=== PATIENT | male | born 1965 | race Caucasian/White ===

== ENCOUNTER 2020-10-25 13:24 | Inpatient (IN) | payer SELFPAY ==
[2020-10-25] MEDS ORDERED: Iopamidol-370 76% 500 ML 1 ML ONE (13:37)
[2020-10-25 14:18] LABS: Hemoglobin 15.3 g/dL (14.0-18.0); Mean Corpuscular HGB CONC 34.9 g/dL (32.0-36.0); Mean Corpuscular Hemoglobin 31.2 pg (27.0-31.0); Mean Corpuscular Volume 89.3 fL (78.0-98.0); Mean Platelet Volume 7.5 fL (7.4-10.4); Platelet Count 215 thou/uL (130-400); RBC Distribution Width 12.4 % (11.5-14.5); Red Blood Cell (RBC) Count 4.91 mill/uL (4.70-6.10); White Blood Cell (WBC) Count 8.6 thou/uL (4.8-10.8)
[2020-10-25] MEDS ORDERED: Albuterol Sulfate 2.5 mg/0.5 ml Neb ONE (14:29)
[2020-10-25] MEDS ORDERED: Dexamethasone 4 mg/ml Vial ONE (14:29)
[2020-10-25 14:30] LABS: Band 8 % (5-11); Lymphocytes 1 % (21-51); MDiff Complete? YES; Monocytes 9 % (0-10); Neutrophil 82 % (42-75); Platelet Morphology Comment Appears Adequate; RBC Morphology Normal
[2020-10-25] MEDS ORDERED: Albuterol 200 PUFF (6.7GM INHALER) ONE (14:31)
[2020-10-25 14:57] LABS: ALT (SGPT) 43 U/L (8-55); AST (SGOT) 39 U/L (5-34); Albumin 3.5 g/dL (3.5-5.0); Alkaline Phosphatase 99 U/L (40-110); Anion Gap 24 mmol/L (10-20); BUN (Urea Nitrogen) 23 mg/dL (8.4-25.7); Bilirubin, Total 0.7 mg/dL (0.2-1.2); Calc. Creatinine Clearance 0 mL/min (70-130); Calcium 9.2 mg/dL (7.8-10.44); Carbon Dioxide 19 mmol/L (22-29); Chloride 93 mmol/L (98-107); Globulin 3.2 g/dL (2.4-3.5); Glucose 459 mg/dL (70-105); Potassium 4.9 mmol/L (3.5-5.1); Protein, Total 6.7 g/dL (6.0-8.3); Sodium 131 mmol/L (136-145)
[2020-10-25 16:32] LABS: Actual Bicarbonate (HCO3a) 17.6 mEq/L (22-28); Analyzer IN Cardio ER; Base Excess (BEa) -6.5 mEq/L (-2.0 to +3.0); CO2 Tension 31.8 mmHg (35.0-45.0); Carboxyhemoglobin (COHb) 0.5 gm% (0.0-3.0); Hemoglobin (Hb) 15.6 g/dL (14.0-18.0); pH, Arterial 7.36 (7.35-7.45)
[2020-10-25 16:34] LABS: O2 Tension (PaO2), arterial 56.6 mmHg (80.0-100.0); Puncture Site LRA
[2020-10-25 17:42] LABS: Lactic Acid 1.9 mmol/L (0.5-2.2)
[2020-10-25] MEDS ORDERED: HYDROcodone/Acetaminophen 5/325 mg Tablet PO PRN (17:56)
[2020-10-25] MEDS ORDERED: Senokot S 8.6-50 MG TAB PO PRN (17:56)
[2020-10-25] MEDS ORDERED: Acetaminophen 325 MG TAB PO PRN (17:56)
[2020-10-25] MEDS ORDERED: Ondansetron ODT 4 MG TAB PO PRN (17:56)
[2020-10-25] MEDS ORDERED: Bisacodyl 5 MG TAB PO PRN (17:56)
[2020-10-25] MEDS ORDERED: HYDROcodone/Acetaminophen 7.5/325 mg Tablet PO PRN (17:56)
[2020-10-25] MEDS ORDERED: Guaifenesin DM 100-10/5 ML UDCUP PO PRN (17:56)
[2020-10-25] MEDS ORDERED: Enoxaparin Sodium 40 MG/0.4 ML SYRINGE SC SCH (18:00)
[2020-10-25] MEDS ORDERED: Dextrose 50% Abboject 50 ML SYRINGE SLOW IVP PRN (18:09)
[2020-10-25] MEDS ORDERED: Dextrose 5% in Water 1,000 ML IV PRN (18:09)
[2020-10-25] MEDS ORDERED: Pharmacy to Dose REMDESIVIR IVPB PRN (18:19)
[2020-10-25] MEDS ORDERED: Insulin Regular 300 UNITS/3 ML VIAL ONE (18:24)
[2020-10-25] MEDS ORDERED: cefTRIAXone\\ROCEPHIN 2 GM VIAL ONE (20:35)
[2020-10-25] MEDS ORDERED: Enoxaparin Sodium 40 MG/0.4 ML SYRINGE ONE (20:35)
[2020-10-25] MEDS: cefTRIAXone\\ROCEPHIN 2 GM in Sodium Chloride 0.9% 100 ML IVPB SCH (20:42)
[2020-10-25] MEDS ORDERED: Azithromycin 500 MG VIAL ONE (21:31)
[2020-10-25] MEDS ORDERED: Famotidine 20 MG TAB ONE (21:31)
[2020-10-25] MEDS: Famotidine 20 MG TAB PO SCH (21:38)
[2020-10-25] MEDS: Azithromycin 500 MG in Sodium Chloride 0.9% 250 ML 250 ML IVPB SCH (21:38)
[2020-10-25] MEDS: HumaLOG 300 UNITS/3 ML VIAL SC PRN (23:19)
[2020-10-25] MEDS ORDERED: HumaLOG 300 UNITS/3 ML VIAL ONE (23:22)
[2020-10-26 05:46] LABS: #Lymphocytes 0.6 thou/uL (1.20-3.40); #Monocytes 1.1 thou/uL (0.11-0.59); #Neutrophils 10.1 thou/uL (1.40-6.50); %Basophils 0.1 % (0.0-1.0); %Eosinophils 0.3 % (0.0-10.0); %Lymphocytes 5.3 % (21.0-51.0); %Monocytes 9.5 % (0.0-10.0); %Neutrophils 84.8 % (42.0-75.0); Mean Corpuscular HGB CONC 34.7 g/dL (32.0-36.0); Mean Corpuscular Volume 89.6 fL (78.0-98.0); Mean Platelet Volume 7.5 fL (7.4-10.4); Platelet Count 223 thou/uL (130-400); RBC Distribution Width 12.5 % (11.5-14.5); Red Blood Cell (RBC) Count 5.17 mill/uL (4.70-6.10); White Blood Cell (WBC) Count 11.9 thou/uL (4.8-10.8)
[2020-10-26 06:05] LABS: Anion Gap 24 mmol/L (10-20); BUN (Urea Nitrogen) 23 mg/dL (8.4-25.7); Calc. Creatinine Clearance 0 mL/min (70-130); Calcium 9.7 mg/dL (7.8-10.44); Carbon Dioxide 20 mmol/L (22-29); Chloride 96 mmol/L (98-107); Glucose 375 mg/dL (70-105); Potassium 5.6 mmol/L (3.5-5.1); Sodium 134 mmol/L (136-145)
[2020-10-26] MEDS ORDERED: HumaLOG 300 UNITS/3 ML VIAL ONE (08:13)
[2020-10-26] MEDS ORDERED: Dexamethasone 10 MG/ML VIAL ONE (08:13)
[2020-10-26] MEDS ORDERED: Enoxaparin Sodium 40 MG/0.4 ML SYRINGE ONE (08:13)
[2020-10-26] MEDS ORDERED: Famotidine 20 MG TAB ONE (08:13)
[2020-10-26] MEDS: HumaLOG 300 UNITS/3 ML VIAL SC PRN ×3 (08:17→20:21)
[2020-10-26] MEDS: Dexamethasone 4 mg/ml Vial SLOW IVP SCH (08:25)
[2020-10-26] MEDS: Famotidine 20 MG TAB PO SCH ×2 (08:25→20:19)
[2020-10-26] MEDS ORDERED: Enoxaparin Sodium 40 MG/0.4 ML SYRINGE SC SCH (09:00)
[2020-10-26] MEDS ORDERED: Lorazepam 2 MG/ML VIAL SLOW IVP PRN (10:24)
[2020-10-26] MEDS ORDERED: Lorazepam 0.5 MG TAB PO PRN (10:24)
[2020-10-26] MEDS: Lantus 1000 UNITS/10 ML VIAL SC SCH (12:41)
[2020-10-26] MEDS: Ascorbic Acid 500 mg Chewable Tablet PO SCH (13:53)
[2020-10-26] MEDS: Zinc Sulfate 220 MG CAP PO SCH (13:53)
[2020-10-26] MEDS: Cholecalciferol (Vitamin D3) 400 UNITS TAB PO SCH (13:53)
[2020-10-26] MEDS: cefTRIAXone\\ROCEPHIN 2 GM in Sodium Chloride 0.9% 100 ML IVPB SCH (18:20)
[2020-10-26] MEDS: Enoxaparin Sodium 40 MG/0.4 ML SYRINGE SC SCH (20:19)
[2020-10-26] MEDS: Azithromycin 500 MG in Sodium Chloride 0.9% 250 ML 250 ML IVPB SCH (21:17)
[2020-10-27 05:58] LABS: #Lymphocytes 0.7 thou/uL (1.20-3.40); #Monocytes 1.1 thou/uL (0.11-0.59); #Neutrophils 9.1 thou/uL (1.40-6.50); %Eosinophils 0.2 % (0.0-10.0); %Lymphocytes 6.6 % (21.0-51.0); %Monocytes 10.3 % (0.0-10.0); %Neutrophils 82.9 % (42.0-75.0); Hemoglobin 14.7 g/dL (14.0-18.0); Mean Corpuscular Hemoglobin 31.2 pg (27.0-31.0); Mean Corpuscular Volume 89.2 fL (78.0-98.0); Mean Platelet Volume 7.3 fL (7.4-10.4); Platelet Count 258 thou/uL (130-400); RBC Distribution Width 12.4 % (11.5-14.5); Red Blood Cell (RBC) Count 4.72 mill/uL (4.70-6.10)
[2020-10-27] MEDS: HumaLOG 300 UNITS/3 ML VIAL SC PRN ×5 (06:25→21:40)
[2020-10-27 06:56] LABS: Anion Gap 21 mmol/L (10-20); BUN (Urea Nitrogen) 26 mg/dL (8.4-25.7); Calc. Creatinine Clearance 112 mL/min (70-130); Calcium 8.9 mg/dL (7.8-10.44); Carbon Dioxide 20 mmol/L (22-29); Chloride 94 mmol/L (98-107); Glucose 333 mg/dL (70-105); Potassium 4.3 mmol/L (3.5-5.1); Sodium 131 mmol/L (136-145)
[2020-10-27 07:04] LABS: SARS-CoV-2 NAA Rapid Test DETECTED (NotDetected)
[2020-10-27] MEDS: Ascorbic Acid 500 mg Chewable Tablet PO SCH (08:33)
[2020-10-27] MEDS: Cholecalciferol (Vitamin D3) 400 UNITS TAB PO SCH (08:33)
[2020-10-27] MEDS: Zinc Sulfate 220 MG CAP PO SCH (08:35)
[2020-10-27] MEDS: Enoxaparin Sodium 40 MG/0.4 ML SYRINGE SC SCH ×2 (08:35→21:41)
[2020-10-27] MEDS: Famotidine 20 MG TAB PO SCH ×2 (08:35→22:11)
[2020-10-27] MEDS ORDERED: Dexamethasone 4 mg/ml Vial SLOW IVP SCH (09:00)
[2020-10-27] MEDS: Dexamethasone 4 mg/ml Vial SLOW IVP SCH (09:14)
[2020-10-27] MEDS: Lantus 1000 UNITS/10 ML VIAL SC SCH (09:15)
[2020-10-27] MEDS ORDERED: Melatonin 3 MG TAB PO PRN (13:06)
[2020-10-27] MEDS: cefTRIAXone\\ROCEPHIN 2 GM in Sodium Chloride 0.9% 100 ML IVPB SCH (21:38)
[2020-10-27] MEDS: Azithromycin 500 MG in Sodium Chloride 0.9% 250 ML 250 ML IVPB SCH (21:42)
[2020-10-28 05:19] LABS: #Lymphocytes 0.6 thou/uL (1.20-3.40); #Monocytes 0.9 thou/uL (0.11-0.59); #Neutrophils 8.7 thou/uL (1.40-6.50); %Eosinophils 0.1 % (0.0-10.0); %Lymphocytes 5.6 % (21.0-51.0); %Monocytes 8.7 % (0.0-10.0); %Neutrophils 85.5 % (42.0-75.0); Hemoglobin 15.1 g/dL (14.0-18.0); Mean Corpuscular HGB CONC 35.3 g/dL (32.0-36.0); Mean Corpuscular Hemoglobin 31.3 pg (27.0-31.0); Mean Corpuscular Volume 88.6 fL (78.0-98.0); Platelet Count 266 thou/uL (130-400); RBC Distribution Width 12.2 % (11.5-14.5); Red Blood Cell (RBC) Count 4.81 mill/uL (4.70-6.10); White Blood Cell (WBC) Count 10.2 thou/uL (4.8-10.8)
[2020-10-28 05:21] LABS: Hemoglobin A1c 10.7 % (4.0-6.0)
[2020-10-28 05:42] LABS: Anion Gap 12 mmol/L (10-20); BUN (Urea Nitrogen) 22 mg/dL (8.4-25.7); Calc. Creatinine Clearance 136 mL/min (70-130); Calcium 9.2 mg/dL (7.8-10.44); Carbon Dioxide 30 mmol/L (22-29); Chloride 96 mmol/L (98-107); Glucose 281 mg/dL (70-105); Potassium 4.1 mmol/L (3.5-5.1); Sodium 134 mmol/L (136-145)
[2020-10-28] MEDS: HumaLOG 300 UNITS/3 ML VIAL SC PRN ×4 (06:24→22:51)
[2020-10-28] MEDS: Enoxaparin Sodium 40 MG/0.4 ML SYRINGE SC SCH ×2 (08:38→21:13)
[2020-10-28] MEDS: Lantus 1000 UNITS/10 ML VIAL SC SCH (08:38)
[2020-10-28] MEDS: Cholecalciferol (Vitamin D3) 400 UNITS TAB PO SCH (08:38)
[2020-10-28] MEDS: Ascorbic Acid 500 mg Chewable Tablet PO SCH (08:39)
[2020-10-28] MEDS: Famotidine 20 MG TAB PO SCH ×2 (08:40→21:13)
[2020-10-28] MEDS: Zinc Sulfate 220 MG CAP PO SCH (08:40)
[2020-10-28] MEDS: Dexamethasone 4 mg/ml Vial SLOW IVP SCH (08:41)
[2020-10-28] MEDS: Azithromycin 500 MG in Sodium Chloride 0.9% 250 ML 250 ML IVPB SCH (21:12)
[2020-10-28] MEDS: cefTRIAXone\\ROCEPHIN 2 GM in Sodium Chloride 0.9% 100 ML IVPB SCH (22:52)
[2020-10-29 05:34] LABS: Hemoglobin 15.4 g/dL (14.0-18.0); Mean Corpuscular HGB CONC 36.2 g/dL (32.0-36.0); Mean Corpuscular Hemoglobin 31.9 pg (27.0-31.0); Mean Corpuscular Volume 88.2 fL (78.0-98.0); Mean Platelet Volume 7.3 fL (7.4-10.4); Platelet Count 295 thou/uL (130-400); RBC Distribution Width 12.1 % (11.5-14.5); Red Blood Cell (RBC) Count 4.82 mill/uL (4.70-6.10); White Blood Cell (WBC) Count 11.2 thou/uL (4.8-10.8)
[2020-10-29 05:38] LABS: Anion Gap 15 mmol/L (10-20); BUN (Urea Nitrogen) 19 mg/dL (8.4-25.7); Calc. Creatinine Clearance 169 mL/min (70-130); Calcium 8.7 mg/dL (7.8-10.44); Carbon Dioxide 26 mmol/L (22-29); Chloride 96 mmol/L (98-107); Glucose 250 mg/dL (70-105); Potassium 4.1 mmol/L (3.5-5.1); Sodium 133 mmol/L (136-145)
[2020-10-29 06:49] LABS: Band 15 % (5-11); Lymphocytes 2 % (21-51); MDiff Complete? YES; Metamyelocyte 1 % (0-0); Monocytes 5 % (0-10); Myelocyte 2 % (0-0); Neutrophil 74 % (42-75); Reactive Lymphocytes 1 % (0-10)
[2020-10-29] MEDS ORDERED: Lantus 1000 UNITS/10 ML VIAL SC SCH ×2 (09:00→21:00)
[2020-10-29] MEDS: Ascorbic Acid 500 mg Chewable Tablet PO SCH (09:34)
[2020-10-29] MEDS: Cholecalciferol (Vitamin D3) 400 UNITS TAB PO SCH (09:34)
[2020-10-29] MEDS: Famotidine 20 MG TAB PO SCH ×2 (09:34→21:07)
[2020-10-29] MEDS: Zinc Sulfate 220 MG CAP PO SCH (09:35)
[2020-10-29] MEDS: Enoxaparin Sodium 40 MG/0.4 ML SYRINGE SC SCH ×2 (09:35→18:22)
[2020-10-29] MEDS: HumaLOG 300 UNITS/3 ML VIAL SC PRN ×3 (12:32→21:09)
[2020-10-29] MEDS ORDERED: Albuterol 200 PUFF (6.7GM INHALER) INH PRN (16:25)
[2020-10-29] MEDS: Albuterol 200 PUFF (6.7GM INHALER) INH SCH ×2 (17:52→23:51)
[2020-10-29] MEDS: Dexamethasone 4 mg/ml Vial SLOW IVP SCH (17:55)
[2020-10-29] MEDS ORDERED: Azithromycin 250 MG TAB PO SCH (21:00)
[2020-10-29] MEDS ORDERED: Enoxaparin Sodium 40 MG/0.4 ML SYRINGE SC SCH (21:00)
[2020-10-29] MEDS: Aspirin 81 mg Enteric Coated Tablet PO SCH (21:07)
[2020-10-29] MEDS: guaiFENesin ER 600 MG TAB PO SCH (21:07)
[2020-10-29] MEDS: cefTRIAXone\\ROCEPHIN 2 GM in Sodium Chloride 0.9% 100 ML IVPB SCH (21:08)
[2020-10-30] MEDS: Albuterol 200 PUFF (6.7GM INHALER) INH SCH ×6 (03:46→22:43)
[2020-10-30 05:16] LABS: #Lymphocytes 0.6 thou/uL (1.20-3.40); #Monocytes 0.5 thou/uL (0.11-0.59); #Neutrophils 10.9 thou/uL (1.40-6.50); %Eosinophils 0.2 % (0.0-10.0); %Lymphocytes 4.7 % (21.0-51.0); %Monocytes 4.4 % (0.0-10.0); %Neutrophils 90.6 % (42.0-75.0); Hemoglobin 15.4 g/dL (14.0-18.0); Mean Corpuscular Hemoglobin 31.9 pg (27.0-31.0); Mean Corpuscular Volume 88.7 fL (78.0-98.0); Mean Platelet Volume 7.3 fL (7.4-10.4); Platelet Count 259 thou/uL (130-400); RBC Distribution Width 12.2 % (11.5-14.5); Red Blood Cell (RBC) Count 4.84 mill/uL (4.70-6.10)
[2020-10-30 05:43] LABS: ALT (SGPT) 22 U/L (8-55); AST (SGOT) 19 U/L (5-34); Albumin 2.8 g/dL (3.5-5.0); Alkaline Phosphatase 115 U/L (40-110); Anion Gap 13 mmol/L (10-20); BUN (Urea Nitrogen) 16 mg/dL (8.4-25.7); Bilirubin, Total 0.8 mg/dL (0.2-1.2); CRP (Inflammatory) 9.28 mg/dL (= or < 0.5); Calc. Creatinine Clearance 169 mL/min (70-130); Carbon Dioxide 30 mmol/L (22-29); Chloride 94 mmol/L (98-107); Globulin 3.2 g/dL (2.4-3.5); Glucose 250 mg/dL (70-105); Magnesium 1.9 mg/dL (1.6-2.6); Potassium 4.3 mmol/L (3.5-5.1); Sodium 133 mmol/L (136-145)
[2020-10-30] MEDS: HumaLOG 300 UNITS/3 ML VIAL SC PRN ×4 (06:43→20:46)
[2020-10-30] MEDS: Famotidine 20 MG TAB PO SCH ×2 (08:59→20:45)
[2020-10-30] MEDS: Zinc Sulfate 220 MG CAP PO SCH (08:59)
[2020-10-30] MEDS: Ascorbic Acid 500 mg Chewable Tablet PO SCH (08:59)
[2020-10-30] MEDS: guaiFENesin ER 600 MG TAB PO SCH ×2 (09:00→20:45)
[2020-10-30] MEDS: Cholecalciferol (Vitamin D3) 400 UNITS TAB PO SCH (09:00)
[2020-10-30] MEDS ORDERED: Enoxaparin Sodium 40 MG/0.4 ML SYRINGE SC SCH (09:00)
[2020-10-30] MEDS: Multivit, Therapeutic 1 TAB PO SCH (09:00)
[2020-10-30] MEDS: Lantus 1000 UNITS/10 ML VIAL SC SCH ×2 (09:03→20:45)
[2020-10-30] MEDS: Dexamethasone 10 MG/ML VIAL SLOW IVP SCH (10:50)
[2020-10-30] MEDS ORDERED: BARICITINIB 2 MG TAB PO SCH (15:30)
[2020-10-30] MEDS ORDERED: Magnesium 2 GM/50 ML 2 GM in Premix Bag 1 BAG IVPB SCH (18:00)
[2020-10-30] MEDS: Aspirin 81 mg Enteric Coated Tablet PO SCH (20:45)
[2020-10-30] MEDS: Enoxaparin Sodium 40 MG/0.4 ML SYRINGE SC SCH (20:45)
[2020-10-31] MEDS: Albuterol 200 PUFF (6.7GM INHALER) INH SCH ×6 (02:38→22:01)
[2020-10-31 05:22] LABS: #Lymphocytes 0.7 thou/uL (1.20-3.40); #Monocytes 0.8 thou/uL (0.11-0.59); #Neutrophils 11.8 thou/uL (1.40-6.50); %Basophils 0.1 % (0.0-1.0); %Eosinophils 0.3 % (0.0-10.0); %Lymphocytes 5.4 % (21.0-51.0); %Monocytes 5.7 % (0.0-10.0); %Neutrophils 88.6 % (42.0-75.0); Mean Corpuscular HGB CONC 35.2 g/dL (32.0-36.0); Mean Corpuscular Hemoglobin 31.6 pg (27.0-31.0); Mean Corpuscular Volume 89.8 fL (78.0-98.0); Mean Platelet Volume 7.4 fL (7.4-10.4); Platelet Count 267 thou/uL (130-400); RBC Distribution Width 12.3 % (11.5-14.5); Red Blood Cell (RBC) Count 4.74 mill/uL (4.70-6.10); White Blood Cell (WBC) Count 13.3 thou/uL (4.8-10.8)
[2020-10-31 05:43] LABS: ALT (SGPT) 21 U/L (8-55); AST (SGOT) 17 U/L (5-34); Albumin 2.9 g/dL (3.5-5.0); Alkaline Phosphatase 116 U/L (40-110); Anion Gap 12 mmol/L (10-20); BUN (Urea Nitrogen) 19 mg/dL (8.4-25.7); Bilirubin, Total 0.8 mg/dL (0.2-1.2); Calc. Creatinine Clearance 162 mL/min (70-130); Calcium 9.3 mg/dL (7.8-10.44); Carbon Dioxide 33 mmol/L (22-29); Chloride 93 mmol/L (98-107); Globulin 3.1 g/dL (2.4-3.5); Glucose 232 mg/dL (70-105); Potassium 4.1 mmol/L (3.5-5.1); Sodium 134 mmol/L (136-145)
[2020-10-31] MEDS: HumaLOG 300 UNITS/3 ML VIAL SC PRN ×4 (06:25→22:02)
[2020-10-31] MEDS: Ascorbic Acid 500 mg Chewable Tablet PO SCH (09:34)
[2020-10-31] MEDS: guaiFENesin ER 600 MG TAB PO SCH ×2 (09:34→22:00)
[2020-10-31] MEDS: Cholecalciferol (Vitamin D3) 400 UNITS TAB PO SCH (09:34)
[2020-10-31] MEDS: Zinc Sulfate 220 MG CAP PO SCH (09:34)
[2020-10-31] MEDS: Famotidine 20 MG TAB PO SCH ×2 (09:35→22:00)
[2020-10-31] MEDS: BARICITINIB 2 MG TAB PO SCH (09:35)
[2020-10-31] MEDS: Lantus 1000 UNITS/10 ML VIAL SC SCH ×2 (09:36→22:00)
[2020-10-31] MEDS: Dexamethasone 10 MG/ML VIAL SLOW IVP SCH (09:36)
[2020-10-31] MEDS: Enoxaparin Sodium 40 MG/0.4 ML SYRINGE SC SCH ×2 (09:39→21:59)
[2020-10-31] MEDS: Multivit, Therapeutic 1 TAB PO SCH (09:50)
[2020-10-31] MEDS ORDERED: Sodium Chloride 0.65% Nasal 44 ML BOT EA NARE PRN (13:04)
[2020-10-31] MEDS: Sodium Chloride 0.65% Nasal 44 ML BOT EA NARE SCH ×2 (19:34→22:00)
[2020-10-31] MEDS: Aspirin 81 mg Enteric Coated Tablet PO SCH (21:59)
[2020-11-01] MEDS: Albuterol 200 PUFF (6.7GM INHALER) INH SCH ×6 (02:30→19:55)
[2020-11-01] MEDS: HumaLOG 300 UNITS/3 ML VIAL SC PRN ×5 (02:40→19:58)
[2020-11-01 05:34] LABS: #Lymphocytes 0.9 thou/uL (1.20-3.40); #Monocytes 0.9 thou/uL (0.11-0.59); #Neutrophils 14.7 thou/uL (1.40-6.50); %Eosinophils 0.3 % (0.0-10.0); %Lymphocytes 5.3 % (21.0-51.0); %Monocytes 5.5 % (0.0-10.0); %Neutrophils 88.9 % (42.0-75.0); Mean Corpuscular HGB CONC 35.3 g/dL (32.0-36.0); Mean Corpuscular Hemoglobin 31.8 pg (27.0-31.0); Mean Corpuscular Volume 90.2 fL (78.0-98.0); Mean Platelet Volume 7.4 fL (7.4-10.4); Platelet Count 284 thou/uL (130-400); RBC Distribution Width 12.5 % (11.5-14.5); Red Blood Cell (RBC) Count 4.71 mill/uL (4.70-6.10); White Blood Cell (WBC) Count 16.5 thou/uL (4.8-10.8)
[2020-11-01 05:59] LABS: ALT (SGPT) 21 U/L (8-55); AST (SGOT) 19 U/L (5-34); Albumin 2.8 g/dL (3.5-5.0); Alkaline Phosphatase 118 U/L (40-110); Anion Gap 10 mmol/L (10-20); BUN (Urea Nitrogen) 21 mg/dL (8.4-25.7); Bilirubin, Total 0.6 mg/dL (0.2-1.2); CRP (Inflammatory) 4.28 mg/dL (= or < 0.5); Calc. Creatinine Clearance 176 mL/min (70-130); Carbon Dioxide 35 mmol/L (22-29); Chloride 96 mmol/L (98-107); Globulin 3.1 g/dL (2.4-3.5); Glucose 173 mg/dL (70-105); Magnesium 1.8 mg/dL (1.6-2.6); Potassium 4.1 mmol/L (3.5-5.1); Protein, Total 5.9 g/dL (6.0-8.3); Sodium 137 mmol/L (136-145)
[2020-11-01] MEDS: Zinc Sulfate 220 MG CAP PO SCH (09:40)
[2020-11-01] MEDS: guaiFENesin ER 600 MG TAB PO SCH ×2 (09:40→19:56)
[2020-11-01] MEDS: Cholecalciferol (Vitamin D3) 400 UNITS TAB PO SCH (09:41)
[2020-11-01] MEDS: Enoxaparin Sodium 40 MG/0.4 ML SYRINGE SC SCH ×2 (09:41→19:56)
[2020-11-01] MEDS: Multivit, Therapeutic 1 TAB PO SCH (09:41)
[2020-11-01] MEDS: Ascorbic Acid 500 mg Chewable Tablet PO SCH (09:41)
[2020-11-01] MEDS: Famotidine 20 MG TAB PO SCH ×2 (09:41→19:56)
[2020-11-01] MEDS: Dexamethasone 10 MG/ML VIAL SLOW IVP SCH (09:42)
[2020-11-01] MEDS: BARICITINIB 2 MG TAB PO SCH (09:43)
[2020-11-01] MEDS: Sodium Chloride 0.65% Nasal 44 ML BOT EA NARE SCH ×4 (09:52→19:57)
[2020-11-01] MEDS: Lantus 1000 UNITS/10 ML VIAL SC SCH (10:04)
[2020-11-01] MEDS ORDERED: Magnesium 2 GM/50 ML 2 GM in Premix Bag 1 BAG IVPB SCH (14:30)
[2020-11-01] MEDS: Aspirin 81 mg Enteric Coated Tablet PO SCH (19:56)
[2020-11-01] MEDS ORDERED: Lantus 1000 UNITS/10 ML VIAL SC SCH (21:00)
[2020-11-02 05:45] LABS: #Eosinphils 0.1 thou/uL (0.0-0.7); #Neutrophils 14.7 thou/uL (1.40-6.50); %Basophils 0.1 % (0.0-1.0); %Eosinophils 0.4 % (0.0-10.0); %Neutrophils 87.5 % (42.0-75.0); Hemoglobin 14.9 g/dL (14.0-18.0); Mean Corpuscular HGB CONC 34.2 g/dL (32.0-36.0); Mean Corpuscular Hemoglobin 31.1 pg (27.0-31.0); Mean Corpuscular Volume 90.7 fL (78.0-98.0); Mean Platelet Volume 7.6 fL (7.4-10.4); Platelet Count 280 thou/uL (130-400); RBC Distribution Width 12.6 % (11.5-14.5); White Blood Cell (WBC) Count 16.8 thou/uL (4.8-10.8)
[2020-11-02 06:08] LABS: Anion Gap 10 mmol/L (10-20); BUN (Urea Nitrogen) 22 mg/dL (8.4-25.7); CRP (Inflammatory) 4.28 mg/dL (= or < 0.5); Calc. Creatinine Clearance 170 mL/min (70-130); Calcium 9.1 mg/dL (7.8-10.44); Carbon Dioxide 34 mmol/L (22-29); Chloride 97 mmol/L (98-107); Glucose 140 mg/dL (70-105); Potassium 3.8 mmol/L (3.5-5.1); Sodium 137 mmol/L (136-145)
[2020-11-02] MEDS: Albuterol 200 PUFF (6.7GM INHALER) INH SCH ×4 (07:07→20:54)
[2020-11-02] MEDS: Lantus 1000 UNITS/10 ML VIAL SC SCH (08:11)
[2020-11-02] MEDS: Ascorbic Acid 500 mg Chewable Tablet PO SCH (08:13)
[2020-11-02] MEDS: Famotidine 20 MG TAB PO SCH ×2 (08:14→21:00)
[2020-11-02] MEDS: Zinc Sulfate 220 MG CAP PO SCH (08:14)
[2020-11-02] MEDS: Cholecalciferol (Vitamin D3) 400 UNITS TAB PO SCH (08:14)
[2020-11-02] MEDS: guaiFENesin ER 600 MG TAB PO SCH ×2 (08:14→21:00)
[2020-11-02] MEDS: Multivit, Therapeutic 1 TAB PO SCH (08:14)
[2020-11-02] MEDS: Enoxaparin Sodium 40 MG/0.4 ML SYRINGE SC SCH ×2 (08:15→20:59)
[2020-11-02] MEDS: Sodium Chloride 0.65% Nasal 44 ML BOT EA NARE SCH ×4 (08:15→21:01)
[2020-11-02] MEDS: Dexamethasone 10 MG/ML VIAL SLOW IVP SCH (08:16)
[2020-11-02] MEDS: BARICITINIB 2 MG TAB PO SCH (08:16)
[2020-11-02] MEDS ORDERED: glipiZIDE 5 MG TAB PO SCH (09:00)
[2020-11-02] MEDS: HumaLOG 300 UNITS/3 ML VIAL SC PRN ×3 (12:51→21:01)
[2020-11-02] MEDS: Aspirin 81 mg Enteric Coated Tablet PO SCH (20:59)
[2020-11-02] MEDS ORDERED: Lantus 1000 UNITS/10 ML VIAL SC SCH (21:00)
[2020-11-03 04:50] LABS: #Eosinphils 0.1 thou/uL (0.0-0.7); #Lymphocytes 0.9 thou/uL (1.20-3.40); #Monocytes 1.3 thou/uL (0.11-0.59); #Neutrophils 14.9 thou/uL (1.40-6.50); %Basophils 0.2 % (0.0-1.0); %Eosinophils 0.5 % (0.0-10.0); %Lymphocytes 5.5 % (21.0-51.0); %Monocytes 7.7 % (0.0-10.0); %Neutrophils 86.2 % (42.0-75.0); Hemoglobin 15.5 g/dL (14.0-18.0); Mean Corpuscular HGB CONC 33.1 g/dL (32.0-36.0); Mean Corpuscular Volume 90.5 fL (78.0-98.0); Mean Platelet Volume 7.3 fL (7.4-10.4); Platelet Count 301 thou/uL (130-400); RBC Distribution Width 12.7 % (11.5-14.5); Red Blood Cell (RBC) Count 5.18 mill/uL (4.70-6.10); White Blood Cell (WBC) Count 17.3 thou/uL (4.8-10.8)
[2020-11-03 05:07] LABS: Anion Gap 13 mmol/L (10-20); BUN (Urea Nitrogen) 21 mg/dL (8.4-25.7); CRP (Inflammatory) 4.57 mg/dL (= or < 0.5); Calc. Creatinine Clearance 163 mL/min (70-130); Calcium 9.3 mg/dL (7.8-10.44); Carbon Dioxide 32 mmol/L (22-29); Chloride 97 mmol/L (98-107); Glucose 77 mg/dL (70-105); Magnesium 1.8 mg/dL (1.6-2.6); Potassium 3.6 mmol/L (3.5-5.1); Sodium 138 mmol/L (136-145)
[2020-11-03] MEDS: Albuterol 200 PUFF (6.7GM INHALER) INH SCH ×4 (07:52→20:23)
[2020-11-03] MEDS: Sodium Chloride 0.65% Nasal 44 ML BOT EA NARE SCH ×4 (08:30→20:37)
[2020-11-03] MEDS: Dexamethasone 10 MG/ML VIAL SLOW IVP SCH (08:50)
[2020-11-03] MEDS: guaiFENesin ER 600 MG TAB PO SCH ×2 (08:52→20:26)
[2020-11-03] MEDS: Cholecalciferol (Vitamin D3) 400 UNITS TAB PO SCH (08:53)
[2020-11-03] MEDS: Famotidine 20 MG TAB PO SCH (08:53)
[2020-11-03] MEDS: BARICITINIB 2 MG TAB PO SCH (08:54)
[2020-11-03] MEDS: Zinc Sulfate 220 MG CAP PO SCH (08:54)
[2020-11-03] MEDS: Multivit, Therapeutic 1 TAB PO SCH (08:54)
[2020-11-03] MEDS: Ascorbic Acid 500 mg Chewable Tablet PO SCH (08:54)
[2020-11-03] MEDS: glipiZIDE 5 MG TAB PO SCH (08:55)
[2020-11-03] MEDS: Enoxaparin Sodium 60 MG/0.6 ML SYRINGE SC SCH ×2 (09:09→20:25)
[2020-11-03] MEDS: HumaLOG 300 UNITS/3 ML VIAL SC PRN ×3 (11:32→21:22)
[2020-11-03] MEDS: Lantus 1000 UNITS/10 ML VIAL SC SCH (11:51)
[2020-11-03] MEDS ORDERED: Azithromycin 250 MG TAB PO SCH (14:15)
[2020-11-03] MEDS: cefTRIAXone\\ROCEPHIN 1 GM in Sodium Chloride 0.9% 100 ML IVPB SCH (14:53)
[2020-11-03] MEDS ORDERED: Electrolyte Replacement Protocol 1 EACH FS SCH (17:00)
[2020-11-03] MEDS ORDERED: Magnesium 2 GM/50 ML 2 GM in Premix Bag 1 BAG IVPB SCH (18:45)
[2020-11-03] MEDS: Cholecalciferol 1,000 UNITS (25 MCG) TAB PO SCH (20:24)
[2020-11-03] MEDS: Colchicine 0.6 MG TAB PO SCH (20:25)
[2020-11-03] MEDS: Ivermectin 3 MG TAB PO SCH (20:37)
[2020-11-04 04:39] LABS: #Eosinphils 0.1 thou/uL (0.0-0.7); #Lymphocytes 1.1 thou/uL (1.20-3.40); #Monocytes 1.9 thou/uL (0.11-0.59); #Neutrophils 16.5 thou/uL (1.40-6.50); %Basophils 0.2 % (0.0-1.0); %Eosinophils 0.3 % (0.0-10.0); %Lymphocytes 5.4 % (21.0-51.0); %Monocytes 9.6 % (0.0-10.0); %Neutrophils 84.5 % (42.0-75.0); Hemoglobin 15.9 g/dL (14.0-18.0); Mean Corpuscular HGB CONC 35.8 g/dL (32.0-36.0); Mean Corpuscular Hemoglobin 32.4 pg (27.0-31.0); Mean Corpuscular Volume 90.6 fL (78.0-98.0); Mean Platelet Volume 7.6 fL (7.4-10.4); Platelet Count 305 thou/uL (130-400); RBC Distribution Width 12.7 % (11.5-14.5); Red Blood Cell (RBC) Count 4.89 mill/uL (4.70-6.10); White Blood Cell (WBC) Count 19.5 thou/uL (4.8-10.8)
[2020-11-04 04:58] LABS: Anion Gap 13 mmol/L (10-20); BUN (Urea Nitrogen) 22 mg/dL (8.4-25.7); CRP (Inflammatory) 5.04 mg/dL (= or < 0.5); Calc. Creatinine Clearance 180 mL/min (70-130); Calcium 9.5 mg/dL (7.8-10.44); Carbon Dioxide 31 mmol/L (22-29); Chloride 96 mmol/L (98-107); Glucose 145 mg/dL (70-105); Potassium 4.4 mmol/L (3.5-5.1); Sodium 136 mmol/L (136-145)
[2020-11-04] MEDS: Albuterol 200 PUFF (6.7GM INHALER) INH SCH ×4 (05:52→21:23)
[2020-11-04 06:52] LABS: Troponin I Less than 0.010 ng/mL (< 0.028)
[2020-11-04] MEDS: glipiZIDE 5 MG TAB PO SCH (08:41)
[2020-11-04] MEDS: Ascorbic Acid 500 mg Chewable Tablet PO SCH (08:41)
[2020-11-04] MEDS: Aspirin 81 mg Enteric Coated Tablet PO SCH (08:41)
[2020-11-04] MEDS: Azithromycin 250 MG TAB PO SCH (08:42)
[2020-11-04] MEDS: BARICITINIB 2 MG TAB PO SCH (08:42)
[2020-11-04] MEDS: Colchicine 0.6 MG TAB PO SCH ×2 (08:43→21:24)
[2020-11-04] MEDS: Dexamethasone 10 MG/ML VIAL SLOW IVP SCH (08:44)
[2020-11-04] MEDS: Enoxaparin Sodium 60 MG/0.6 ML SYRINGE SC SCH ×2 (08:45→21:24)
[2020-11-04] MEDS: guaiFENesin ER 600 MG TAB PO SCH ×2 (08:46→21:24)
[2020-11-04] MEDS: Multivit, Therapeutic 1 TAB PO SCH (08:47)
[2020-11-04] MEDS: Sodium Chloride 0.65% Nasal 44 ML BOT EA NARE SCH ×4 (08:48→21:24)
[2020-11-04] MEDS: Zinc Sulfate 220 MG CAP PO SCH (08:48)
[2020-11-04] MEDS: Lantus 1000 UNITS/10 ML VIAL SC SCH (10:15)
[2020-11-04 10:47] LABS: Troponin I Less than 0.010 ng/mL (< 0.028)
[2020-11-04] MEDS: HumaLOG 300 UNITS/3 ML VIAL SC PRN ×3 (13:50→21:31)
[2020-11-04] MEDS: cefTRIAXone\\ROCEPHIN 1 GM in Sodium Chloride 0.9% 100 ML IVPB SCH (15:13)
[2020-11-04] MEDS: Cholecalciferol 1,000 UNITS (25 MCG) TAB PO SCH (21:24)
[2020-11-04] MEDS: Ivermectin 3 MG TAB PO SCH (21:25)
[2020-11-05 05:14] LABS: Anion Gap 13 mmol/L (10-20); BUN (Urea Nitrogen) 23 mg/dL (8.4-25.7); CRP (Inflammatory) 3.56 mg/dL (= or < 0.5); Calc. Creatinine Clearance 180 mL/min (70-130); Calcium 9.3 mg/dL (7.8-10.44); Carbon Dioxide 30 mmol/L (22-29); Chloride 96 mmol/L (98-107); Glucose 148 mg/dL (70-105); Magnesium 1.8 mg/dL (1.6-2.6); Phosphorus 3.1 mg/dL (2.3-4.7); Potassium 4.5 mmol/L (3.5-5.1); Sodium 134 mmol/L (136-145)
[2020-11-05 05:23] LABS: Band 6 % (5-11); Eosinophils 2 % (0-10); Hemoglobin 15.7 g/dL (14.0-18.0); Lymphocytes 4 % (21-51); MDiff Complete? YES; Mean Corpuscular HGB CONC 34.6 g/dL (32.0-36.0); Mean Corpuscular Hemoglobin 31.4 pg (27.0-31.0); Mean Corpuscular Volume 90.8 fL (78.0-98.0); Mean Platelet Volume 7.6 fL (7.4-10.4); Monocytes 10 % (0-10); Neutrophil 78 % (42-75); Platelet Count 361 thou/uL (130-400); Platelet Morphology Comment Appears Adequate; Red Blood Cell (RBC) Count 5.01 mill/uL (4.70-6.10); White Blood Cell (WBC) Count 20.4 thou/uL (4.8-10.8)
[2020-11-05] MEDS ORDERED: Magnesium 2 GM/50 ML 2 GM in Premix Bag 1 BAG IVPB SCH (06:45)
[2020-11-05] MEDS: Albuterol 200 PUFF (6.7GM INHALER) INH SCH ×4 (08:21→18:18)
[2020-11-05] MEDS: Ascorbic Acid 500 mg Chewable Tablet PO SCH (08:22)
[2020-11-05] MEDS: Multivit, Therapeutic 1 TAB PO SCH (08:22)
[2020-11-05] MEDS: Colchicine 0.6 MG TAB PO SCH ×2 (08:22→21:02)
[2020-11-05] MEDS: Zinc Sulfate 220 MG CAP PO SCH (08:22)
[2020-11-05] MEDS: guaiFENesin ER 600 MG TAB PO SCH ×2 (08:23→21:02)
[2020-11-05] MEDS: Aspirin 81 mg Enteric Coated Tablet PO SCH (08:23)
[2020-11-05] MEDS: BARICITINIB 2 MG TAB PO SCH (08:23)
[2020-11-05] MEDS: Azithromycin 250 MG TAB PO SCH (08:23)
[2020-11-05] MEDS: glipiZIDE 5 MG TAB PO SCH (08:23)
[2020-11-05] MEDS: Dexamethasone 10 MG/ML VIAL SLOW IVP SCH (08:24)
[2020-11-05] MEDS: Enoxaparin Sodium 60 MG/0.6 ML SYRINGE SC SCH ×2 (08:25→21:01)
[2020-11-05] MEDS: Lantus 1000 UNITS/10 ML VIAL SC SCH (08:26)
[2020-11-05] MEDS: Sodium Chloride 0.65% Nasal 44 ML BOT EA NARE SCH ×4 (08:28→21:03)
[2020-11-05] MEDS: HumaLOG 300 UNITS/3 ML VIAL SC PRN ×4 (12:29→21:13)
[2020-11-05] MEDS: cefTRIAXone\\ROCEPHIN 1 GM in Sodium Chloride 0.9% 100 ML IVPB SCH (14:16)
[2020-11-05] MEDS: Cholecalciferol 1,000 UNITS (25 MCG) TAB PO SCH (21:02)
[2020-11-05] MEDS: Ivermectin 3 MG TAB PO SCH (22:17)
[2020-11-06 09:10] LABS: #Basophils 0.1 thou/uL (0.0-0.2); #Eosinphils 0.1 thou/uL (0.0-0.7); #Lymphocytes 1.1 thou/uL (1.20-3.40); #Monocytes 1.9 thou/uL (0.11-0.59); #Neutrophils 17.6 thou/uL (1.40-6.50); %Basophils 0.3 % (0.0-1.0); %Eosinophils 0.3 % (0.0-10.0); %Lymphocytes 5.1 % (21.0-51.0); %Monocytes 9.1 % (0.0-10.0); %Neutrophils 85.2 % (42.0-75.0); Hemoglobin 15.8 g/dL (14.0-18.0); Mean Corpuscular HGB CONC 34.4 g/dL (32.0-36.0); Mean Corpuscular Hemoglobin 31.2 pg (27.0-31.0); Mean Corpuscular Volume 90.9 fL (78.0-98.0); Mean Platelet Volume 7.4 fL (7.4-10.4); Platelet Count 394 thou/uL (130-400); RBC Distribution Width 13.1 % (11.5-14.5); Red Blood Cell (RBC) Count 5.06 mill/uL (4.70-6.10); White Blood Cell (WBC) Count 20.7 thou/uL (4.8-10.8)
[2020-11-06 09:30] LABS: ALT (SGPT) 20 U/L (8-55); AST (SGOT) 13 U/L (5-34); Albumin 3.2 g/dL (3.5-5.0); Alkaline Phosphatase 105 U/L (40-110); Anion Gap 14 mmol/L (10-20); BUN (Urea Nitrogen) 23 mg/dL (8.4-25.7); Bilirubin, Total 0.7 mg/dL (0.2-1.2); CRP (Inflammatory) 4.05 mg/dL (= or < 0.5); Calc. Creatinine Clearance 180 mL/min (70-130); Calcium 9.3 mg/dL (7.8-10.44); Carbon Dioxide 28 mmol/L (22-29); Chloride 96 mmol/L (98-107); Globulin 3.1 g/dL (2.4-3.5); Glucose 166 mg/dL (70-105); Potassium 4.2 mmol/L (3.5-5.1); Protein, Total 6.3 g/dL (6.0-8.3); Sodium 134 mmol/L (136-145)
[2020-11-06] MEDS: Enoxaparin Sodium 60 MG/0.6 ML SYRINGE SC SCH ×2 (09:54→20:51)
[2020-11-06] MEDS: Azithromycin 250 MG TAB PO SCH (09:55)
[2020-11-06] MEDS: BARICITINIB 2 MG TAB PO SCH (09:56)
[2020-11-06] MEDS: Ascorbic Acid 500 mg Chewable Tablet PO SCH (09:56)
[2020-11-06] MEDS: glipiZIDE 5 MG TAB PO SCH (09:56)
[2020-11-06] MEDS: Zinc Sulfate 220 MG CAP PO SCH (09:56)
[2020-11-06] MEDS: Aspirin 81 mg Enteric Coated Tablet PO SCH (09:56)
[2020-11-06] MEDS: Multivit, Therapeutic 1 TAB PO SCH (09:56)
[2020-11-06] MEDS: Colchicine 0.6 MG TAB PO SCH ×2 (09:56→20:53)
[2020-11-06] MEDS: guaiFENesin ER 600 MG TAB PO SCH ×2 (09:56→20:54)
[2020-11-06] MEDS: Sodium Chloride 0.65% Nasal 44 ML BOT EA NARE SCH ×3 (09:57→18:15)
[2020-11-06] MEDS: Dexamethasone 10 MG/ML VIAL SLOW IVP SCH (09:57)
[2020-11-06] MEDS: Lantus 1000 UNITS/10 ML VIAL SC SCH (09:57)
[2020-11-06] MEDS: Albuterol 200 PUFF (6.7GM INHALER) INH SCH ×4 (09:57→20:53)
[2020-11-06] MEDS: cefTRIAXone\\ROCEPHIN 1 GM in Sodium Chloride 0.9% 100 ML IVPB SCH (14:29)
[2020-11-06] MEDS: HumaLOG 300 UNITS/3 ML VIAL SC PRN ×3 (14:33→20:57)
[2020-11-06] MEDS: Cholecalciferol 1,000 UNITS (25 MCG) TAB PO SCH (20:52)
[2020-11-06] MEDS: Metoprolol Tartrate 25 MG TAB PO SCH (20:53)
[2020-11-07 04:56] LABS: #Basophils 0.1 thou/uL (0.0-0.2); #Eosinphils 0.1 thou/uL (0.0-0.7); #Lymphocytes 1.6 thou/uL (1.20-3.40); #Monocytes 1.8 thou/uL (0.11-0.59); #Neutrophils 13.4 thou/uL (1.40-6.50); %Basophils 0.4 % (0.0-1.0); %Eosinophils 0.6 % (0.0-10.0); %Lymphocytes 9.5 % (21.0-51.0); %Monocytes 10.6 % (0.0-10.0); Hemoglobin 14.9 g/dL (14.0-18.0); Mean Corpuscular HGB CONC 36.1 g/dL (32.0-36.0); Mean Corpuscular Hemoglobin 32.8 pg (27.0-31.0); Mean Corpuscular Volume 91.1 fL (78.0-98.0); Mean Platelet Volume 7.6 fL (7.4-10.4); Platelet Count 369 thou/uL (130-400); Red Blood Cell (RBC) Count 4.54 mill/uL (4.70-6.10)
[2020-11-07 05:18] LABS: ALT (SGPT) 21 U/L (8-55); AST (SGOT) 15 U/L (5-34); Albumin 2.9 g/dL (3.5-5.0); Alkaline Phosphatase 93 U/L (40-110); Anion Gap 8 mmol/L (10-20); BUN (Urea Nitrogen) 25 mg/dL (8.4-25.7); Bilirubin, Total 0.6 mg/dL (0.2-1.2); CRP (Inflammatory) 3.42 mg/dL (= or < 0.5); Calc. Creatinine Clearance 186 mL/min (70-130); Calcium 9.3 mg/dL (7.8-10.44); Carbon Dioxide 31 mmol/L (22-29); Chloride 100 mmol/L (98-107); Globulin 3.1 g/dL (2.4-3.5); Glucose 99 mg/dL (70-105); Sodium 135 mmol/L (136-145)
[2020-11-07] MEDS: Sodium Chloride 0.65% Nasal 44 ML BOT EA NARE SCH ×5 (05:49→20:39)
[2020-11-07] MEDS: Albuterol 200 PUFF (6.7GM INHALER) INH SCH ×4 (08:04→20:38)
[2020-11-07] MEDS: Aspirin 81 mg Enteric Coated Tablet PO SCH (08:05)
[2020-11-07] MEDS: Colchicine 0.6 MG TAB PO SCH ×2 (08:05→20:39)
[2020-11-07] MEDS: glipiZIDE 5 MG TAB PO SCH (08:05)
[2020-11-07] MEDS: Azithromycin 250 MG TAB PO SCH (08:05)
[2020-11-07] MEDS: Metoprolol Tartrate 25 MG TAB PO SCH ×2 (08:05→20:39)
[2020-11-07] MEDS: BARICITINIB 2 MG TAB PO SCH (08:05)
[2020-11-07] MEDS: Zinc Sulfate 220 MG CAP PO SCH (08:05)
[2020-11-07] MEDS: Ascorbic Acid 500 mg Chewable Tablet PO SCH (08:05)
[2020-11-07] MEDS: Lantus 1000 UNITS/10 ML VIAL SC SCH (08:06)
[2020-11-07] MEDS: Dexamethasone 10 MG/ML VIAL SLOW IVP SCH (08:06)
[2020-11-07] MEDS: Multivit, Therapeutic 1 TAB PO SCH (08:06)
[2020-11-07] MEDS: guaiFENesin ER 600 MG TAB PO SCH ×2 (08:06→20:40)
[2020-11-07] MEDS: Enoxaparin Sodium 60 MG/0.6 ML SYRINGE SC SCH ×2 (08:06→20:40)
[2020-11-07] MEDS: cefTRIAXone\\ROCEPHIN 1 GM in Sodium Chloride 0.9% 100 ML IVPB SCH (13:37)
[2020-11-07] MEDS: HumaLOG 300 UNITS/3 ML VIAL SC PRN (17:30)
[2020-11-07] MEDS: Cholecalciferol 1,000 UNITS (25 MCG) TAB PO SCH (20:38)
[2020-11-08 04:45] LABS: #Basophils 0.1 thou/uL (0.0-0.2); #Eosinphils 0.1 thou/uL (0.0-0.7); #Lymphocytes 2.1 thou/uL (1.20-3.40); #Monocytes 1.4 thou/uL (0.11-0.59); #Neutrophils 12.5 thou/uL (1.40-6.50); %Basophils 0.6 % (0.0-1.0); %Eosinophils 0.3 % (0.0-10.0); %Monocytes 8.8 % (0.0-10.0); %Neutrophils 77.3 % (42.0-75.0); Hemoglobin 15.5 g/dL (14.0-18.0); Mean Corpuscular HGB CONC 35.2 g/dL (32.0-36.0); Mean Corpuscular Volume 90.8 fL (78.0-98.0); Mean Platelet Volume 7.4 fL (7.4-10.4); Platelet Count 398 thou/uL (130-400); RBC Distribution Width 13.1 % (11.5-14.5); Red Blood Cell (RBC) Count 4.85 mill/uL (4.70-6.10); White Blood Cell (WBC) Count 16.1 thou/uL (4.8-10.8)
[2020-11-08 05:08] LABS: ALT (SGPT) 22 U/L (8-55); AST (SGOT) 18 U/L (5-34); Alkaline Phosphatase 106 U/L (40-110); Anion Gap 12 mmol/L (10-20); BUN (Urea Nitrogen) 28 mg/dL (8.4-25.7); Bilirubin, Total 0.7 mg/dL (0.2-1.2); CRP (Inflammatory) 1.33 mg/dL (= or < 0.5); Calc. Creatinine Clearance 162 mL/min (70-130); Calcium 9.4 mg/dL (7.8-10.44); Carbon Dioxide 27 mmol/L (22-29); Chloride 101 mmol/L (98-107); Globulin 3.2 g/dL (2.4-3.5); Glucose 127 mg/dL (70-105); Potassium 4.2 mmol/L (3.5-5.1); Protein, Total 6.2 g/dL (6.0-8.3); Sodium 136 mmol/L (136-145)
[2020-11-08] MEDS: Zinc Sulfate 220 MG CAP PO SCH (08:14)
[2020-11-08] MEDS: guaiFENesin ER 600 MG TAB PO SCH ×2 (08:14→21:17)
[2020-11-08] MEDS: glipiZIDE 5 MG TAB PO SCH (08:14)
[2020-11-08] MEDS: Aspirin 81 mg Enteric Coated Tablet PO SCH (08:14)
[2020-11-08] MEDS: Albuterol 200 PUFF (6.7GM INHALER) INH SCH ×4 (08:14→21:16)
[2020-11-08] MEDS: Metoprolol Tartrate 25 MG TAB PO SCH ×2 (08:15→21:16)
[2020-11-08] MEDS: BARICITINIB 2 MG TAB PO SCH (08:15)
[2020-11-08] MEDS: Multivit, Therapeutic 1 TAB PO SCH (08:15)
[2020-11-08] MEDS: Colchicine 0.6 MG TAB PO SCH ×2 (08:15→21:17)
[2020-11-08] MEDS: Ascorbic Acid 500 mg Chewable Tablet PO SCH (08:16)
[2020-11-08] MEDS: Dexamethasone 10 MG/ML VIAL SLOW IVP SCH (08:17)
[2020-11-08] MEDS: Lantus 1000 UNITS/10 ML VIAL SC SCH (08:17)
[2020-11-08] MEDS: Enoxaparin Sodium 60 MG/0.6 ML SYRINGE SC SCH ×2 (08:17→21:17)
[2020-11-08] MEDS: Sodium Chloride 0.65% Nasal 44 ML BOT EA NARE SCH ×4 (08:19→21:18)
[2020-11-08 09:59] VITALS: BMI 29.1
[2020-11-08] MEDS: HumaLOG 300 UNITS/3 ML VIAL SC PRN ×3 (11:57→21:18)
[2020-11-08] MEDS: Cholecalciferol 1,000 UNITS (25 MCG) TAB PO SCH (21:16)
[2020-11-09 08:41] LABS: #Basophils 0.1 thou/uL (0.0-0.2); #Lymphocytes 1.9 thou/uL (1.20-3.40); #Monocytes 1.1 thou/uL (0.11-0.59); #Neutrophils 9.3 thou/uL (1.40-6.50); %Basophils 0.6 % (0.0-1.0); %Eosinophils 0.2 % (0.0-10.0); %Lymphocytes 15.4 % (21.0-51.0); %Monocytes 8.7 % (0.0-10.0); Hemoglobin 14.7 g/dL (14.0-18.0); Mean Corpuscular HGB CONC 34.2 g/dL (32.0-36.0); Mean Corpuscular Hemoglobin 31.1 pg (27.0-31.0); Mean Platelet Volume 7.6 fL (7.4-10.4); Platelet Count 354 thou/uL (130-400); Red Blood Cell (RBC) Count 4.71 mill/uL (4.70-6.10); White Blood Cell (WBC) Count 12.4 thou/uL (4.8-10.8)
[2020-11-09] MEDS: Ascorbic Acid 500 mg Chewable Tablet PO SCH (09:15)
[2020-11-09] MEDS: Enoxaparin Sodium 60 MG/0.6 ML SYRINGE SC SCH ×2 (09:15→20:11)
[2020-11-09] MEDS: Dexamethasone 10 MG/ML VIAL SLOW IVP SCH (09:15)
[2020-11-09] MEDS: Aspirin 81 mg Enteric Coated Tablet PO SCH (09:15)
[2020-11-09] MEDS: BARICITINIB 2 MG TAB PO SCH (09:15)
[2020-11-09] MEDS: glipiZIDE 5 MG TAB PO SCH (09:15)
[2020-11-09] MEDS: guaiFENesin ER 600 MG TAB PO SCH ×2 (09:16→20:11)
[2020-11-09] MEDS: Metoprolol Tartrate 25 MG TAB PO SCH ×2 (09:16→20:09)
[2020-11-09] MEDS: Multivit, Therapeutic 1 TAB PO SCH (09:16)
[2020-11-09] MEDS: Zinc Sulfate 220 MG CAP PO SCH (09:17)
[2020-11-09] MEDS: Lantus 1000 UNITS/10 ML VIAL SC SCH (09:17)
[2020-11-09] MEDS: Albuterol 200 PUFF (6.7GM INHALER) INH SCH ×4 (09:42→20:11)
[2020-11-09] MEDS: Sodium Chloride 0.65% Nasal 44 ML BOT EA NARE SCH ×4 (09:42→20:11)
[2020-11-09] MEDS: HumaLOG 300 UNITS/3 ML VIAL SC PRN ×3 (13:28→20:15)
[2020-11-09] MEDS: Cholecalciferol 1,000 UNITS (25 MCG) TAB PO SCH (20:00)
[2020-11-10] MEDS: Aspirin 81 mg Enteric Coated Tablet PO SCH (08:29)
[2020-11-10] MEDS: glipiZIDE 5 MG TAB PO SCH (08:29)
[2020-11-10] MEDS: BARICITINIB 2 MG TAB PO SCH (08:29)
[2020-11-10] MEDS: Dexamethasone 10 MG/ML VIAL SLOW IVP SCH (08:30)
[2020-11-10] MEDS: guaiFENesin ER 600 MG TAB PO SCH (08:30)
[2020-11-10] MEDS: Enoxaparin Sodium 60 MG/0.6 ML SYRINGE SC SCH (08:30)
[2020-11-10] MEDS: Multivit, Therapeutic 1 TAB PO SCH (08:31)
[2020-11-10] MEDS: Zinc Sulfate 220 MG CAP PO SCH (08:31)
[2020-11-10] MEDS: Metoprolol Tartrate 25 MG TAB PO SCH (08:31)
[2020-11-10] MEDS: Lantus 1000 UNITS/10 ML VIAL SC SCH (08:41)
[2020-11-10 09:14] LABS: #Basophils 0.1 thou/uL (0.0-0.2); #Lymphocytes 1.8 thou/uL (1.20-3.40); #Monocytes 0.9 thou/uL (0.11-0.59); #Neutrophils 8.6 thou/uL (1.40-6.50); %Basophils 0.6 % (0.0-1.0); %Eosinophils 0.4 % (0.0-10.0); %Lymphocytes 15.5 % (21.0-51.0); %Monocytes 8.1 % (0.0-10.0); %Neutrophils 75.3 % (42.0-75.0); Hemoglobin 15.4 g/dL (14.0-18.0); Mean Corpuscular HGB CONC 34.4 g/dL (32.0-36.0); Mean Corpuscular Hemoglobin 31.5 pg (27.0-31.0); Mean Corpuscular Volume 91.4 fL (78.0-98.0); Mean Platelet Volume 7.5 fL (7.4-10.4); Platelet Count 330 thou/uL (130-400); RBC Distribution Width 13.3 % (11.5-14.5); Red Blood Cell (RBC) Count 4.89 mill/uL (4.70-6.10); White Blood Cell (WBC) Count 11.4 thou/uL (4.8-10.8)
[2020-11-10 09:30] LABS: Anion Gap 9 mmol/L (10-20); BUN (Urea Nitrogen) 21 mg/dL (8.4-25.7); Calc. Creatinine Clearance 179 mL/min (70-130); Carbon Dioxide 31 mmol/L (22-29); Chloride 99 mmol/L (98-107); Potassium 3.8 mmol/L (3.5-5.1); Sodium 135 mmol/L (136-145)
[2020-11-10 09:31] LABS: CRP (Inflammatory) Less than 0.50 mg/dL (= or < 0.5); Calcium 9.2 mg/dL (7.8-10.44); Glucose 133 mg/dL (70-105)
[2020-11-10 12:07] VITALS: BP 123/66; TEMP 97.5
== END 2020-11-10 16:25 | disposition home health service (06) | DRG 871 ==
LOC: ERS 13:24 → ERHOLD 17:37 → 2SE 10-26 14:30
PROVIDERS: ADMIT Internal Medicine; ATTEND Internal Medicine
PROC: 8E0ZXY6 Isolation (ICD-10-PCS; 2020-10-25)
PROC: 5A09457 Assistance with Respiratory Ventilation, 24-96 Consecutive Hours, Continuous Positive Airway Pressure (ICD-10-PCS; principal; 2020-11-04)
DX: A41.89 Other specified sepsis (principal); E11.10 Type 2 diabetes mellitus with ketoacidosis without coma; J96.01 Acute respiratory failure with hypoxia; U07.1 COVID-19; J12.82 Pneumonia due to coronavirus disease 2019; N17.9 Acute kidney failure, unspecified; E87.1 Hypo-osmolality and hyponatremia; R65.20 Severe sepsis without septic shock; E27.8 Other specified disorders of adrenal gland; E83.42 Hypomagnesemia; E87.5 Hyperkalemia; E66.9 Obesity, unspecified; K80.20 Calculus of gallbladder without cholecystitis without obstruction; I10 Essential (primary) hypertension; Z68.30 Body mass index [BMI] 30.0-30.9, adult
CPT/HCPCS: 36415; 36416; 36600; 71045; 71275; 80048; 80053; 82010; 82728; 82805; 83036; 83605; 83735; 83880; 84100; 84484; 85025; 85379; 86140; 93005; 93010; 94660; 96374; J0456; J0696; J1100; J1650; J1815; J3475; J3490; J7050; J7611; Q9967; U0002